=== PATIENT | male | born 1965 | race Hispanic/Latino ===

== ENCOUNTER → 2019-08-05 | Outpatient (CLI) | payer OTHER ==
[~2019-08-05] MED LIST: GADOBENATE DIMEGLUMINE 1 ML IV ONE
[2019-08-05 13:57] LABS: BLOOD UREA NITROGEN 13 mg/dL (7-26); BUN/CREATININE RATIO 13 (6-25); CREATININE, SERUM 1.01 mg/dL (0.72-1.25); EST GLOMERULAR FILTRATION RATE > 60 ML/MIN (60-)
--- NOTE | 2019-08-06 00:56 | Diagnostic Imaging Report ---
Exams: Brain and orbits MRIs without with IV contrast History: Retrobulbar neuritis Comparison studies: None Technique: Brain: Sagittal and axial T2, precontrast axial T1 FLAIR, axial DWI, axial T2 FLAIR, axial T2*GRE and axial, coronal and sagittal T1 FS. Orbits: Axial and coronal T1 flair, axial coronal T2 FS, coronal STIR and axial and coronal T1 FS. Intravenous contrast: 20 cc of MultiHance Findings: Brain: Scalp: No abnormal signal. No masses. Bone marrow: Normal in signal intensity. Brain sulci: Appropriate size for patient's age. Ventricles: The occipital horn of left lateral ventricle is slightly larger than the right which may be an anatomical variant for this patient. No hydrocephalus. Extra-axial spaces: No mass or fluid collection. Parenchyma: A few scattered T2 FLAIR hyperintense foci in the supratentorial white matter are nonspecific but are most compatible with chronic microvascular ischemic changes. Focal small T1 hypointense/T2 hyperintense focus in the right frontal centrum semiovale is compatible with a small chronic lacunar infarct. No mass, hemorrhage, acute ischemia or chronic cortical insults. No enhancing abnormalities. Suprasellar region: No abnormalities. Craniocervical junction: No abnormalities. The foramen magnum is patent. No Chiari malformations. Vessels: Normal flow-voids in the arteries and sinuses. Orbits: Globes: Normal in shape and signal intensity. Intraconal space: No masses. Optic nerves: Normal in size and symmetric. No abnormal enhancement. Extraocular muscles: Normal in size and symmetric Lacrimal glands: Normal in size and symmetric. No masses Orbital apex: No abnormalities. Optic chiasm: Normal in size and signal intensity. Cavernous sinuses: Normal in size and symmetric. No masses. Incidental findings: Inflammatory mucosal thickening with fluid level in the right maxillary sinus. IMPRESSION: Brain: 1. Mild chronic microvascular ischemic changes changes with small chronic right frontal centrum semiovale lacunar infarct. 2. Nonspecific right maxillary sinus sinusitis. Orbits: No orbital abnormalities. Specifically, no signal abnormalities or abnormal enhancement in the optic nerves. Signed by: Dr. Eliseo Cuevas M.D. on 08/06/2019 12:52 AM
== END ==
LOC: MRI 13:05
PROVIDERS: ATTEND Ophthalmology
DX: H46.12 Retrobulbar neuritis, left eye (principal)
CPT/HCPCS: 36415; 70543; 70553; 82565; 84520; A9577